=== PATIENT | female | born 1965 | race American Indian/Alaskan Native ===

== ENCOUNTER 2018-01-16 09:58 | Emergency (ER) | payer MEDICAID ==
[2018-01-16] MEDS ORDERED: Lactated Ringers 1,000 ML IV ONE (11:01)
[2018-01-16] MEDS ORDERED: diphenhydrAMINE 50 MG/ML SDV IVPUSH ONE (11:02)
[2018-01-16] MEDS ORDERED: Ketorolac 30 MG/ML SDV IVPUSH ONE (11:02)
[2018-01-16] MEDS ORDERED: Prochlorperazine 10 MG/2 ML SDV IVPUSH ONE (11:02)
--- NOTE | 2018-01-16 11:08 | EDM.PDOC ---
ED HPI GENERAL MEDICAL PROBLEM - General Chief Complaint: Headache Stated Complaint: SEVERE HEADACHE Time Seen by Provider: 01/16/18 10:50 Source of Information: Reports: Patient, Old Records, RN History Limitations: Reports: No Limitations - History of Present Illness INITIAL COMMENTS - FREE TEXT/NARRATIVE: 52 yo female presents with an occipital TRAN since yesterday. No fever. Has vomited twice today. Has had these TRAN's in the past and they went away with "position changes". No self tx today. Has not seen her primary for this. Was recently started on Losartan for HTN, is not sure what her BP was when the med was started. No recent head trauma. Has a remote hx of a pituitary tumor(benign) . Onset: Gradual Onset Date: 01/15/18 Duration: Hour(s):, Constant Location: Reports: Head Quality: Reports: Ache Severity: Moderate Improves with: Reports: None Worsens with: Reports: None Context: Reports: Other (unknown) Associated Symptoms: Reports: Nausea/Vomiting. 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 - Past Surgical History Endocrine Surgical History: Reports: Pituitary Tumor Resection Social & Family History - Tobacco Use Smoking Status *Q: Former Smoker Used Tobacco, but Quit: Yes Month/Year Tobacco Last Used: 08/2017 - Caffeine Use Caffeine Use: Reports: Coffee, Soda - Recreational Drug Use Recreational Drug Use: No ED ROS GENERAL - Review of Systems Review Of Systems: See Below Constitutional: Reports: No Symptoms HEENT: Reports: No Symptoms Respiratory: Reports: No Symptoms Cardiovascular: Reports: No Symptoms Endocrine: Reports: No Symptoms GI/Abdominal: Reports: Nausea, Vomiting : Reports: No Symptoms Musculoskeletal: Reports: Neck Pain (at occiput) Skin: Reports: No Symptoms Neurological: Reports: Headache Psychiatric: Reports: No Symptoms - Physical Exam Exam: See Below Exam Limited By: No Limitations General Appearance: Alert, WD/WN, No Apparent Distress, Obese Eye Exam: Bilateral Eye: Normal Inspection Ears: Normal External Exam, Normal Canal, Hearing Grossly Normal, Normal TMs Nose: Normal Inspection, Normal Mucosa, No Blood Throat/Mouth: Normal Inspection, Normal Lips, Normal Oropharynx, Normal Voice, No Airway Compromise Head Exam: Atraumatic, Normocephalic Neck: Normal Inspection, Supple, Non-Tender Respiratory/Chest: No Respiratory Distress, Lungs Clear, Normal Breath Sounds, No Accessory Muscle Use Cardiovascular: Regular Rate, Rhythm GI/Abdominal: Normal Bowel Sounds, Soft, Non-Tender, No Distention Neuro Exam (Abbreviated): Alert, Oriented, CN II-XII Intact, Normal Cognition, No Motor/Sensory Deficits Back Exam: Normal Inspection. No: CVA Tenderness (R), CVA Tenderness (L) Extremities: Normal Inspection, Normal Range of Motion, Non-Tender, No Pedal Edema Psychiatric: Normal Affect, Normal Mood Skin Exam: Warm, Dry, Intact, Normal Color, No Rash Course - Vital Signs Text/Narrative:: Feeling better, not resolved after the Flexeril was added to her initial medications. Last Recorded V/S: Last Vital Signs Temp 36.7 C 01/16/18 10:30 Pulse 91 01/16/18 12:26 Resp 14 01/16/18 12:26 BP 170/85 H 01/16/18 12:26 Pulse Ox 98 01/16/18 10:30 - Orders/Labs/Meds Labs: Laboratory Tests 01/16/18 Range/Units 11:07 C-Reactive Protein 0.26 (0.0-0.3) mg/dL Meds: Medications Discontinued Medications Generic Name Dose Route Start Last Admin Trade Name Freq PRN Reason Stop Dose Admin Cyclobenzaprine HCl 10 mg 01/16/18 12:19 01/16/18 12:23 Flexeril PO 01/16/18 12:20 10 mg ONETIME ONE Administration Diphenhydramine HCl 25 mg 01/16/18 11:02 01/16/18 11:32 Benadryl IVPUSH 01/16/18 11:03 25 mg ONETIME ONE Administration Lactated Ringer's 1,000 mls @ 1,000 mls/hr 01/16/18 11:01 01/16/18 11:32 Ringers, Lactated IV 01/16/18 12:00 1,000 mls/hr BOLUS ONE Administration Ketorolac Tromethamine 30 mg 01/16/18 11:02 01/16/18 11:32 Toradol IVPUSH 01/16/18 11:03 30 mg ONETIME ONE Administration Prochlorperazine Edisylate 10 mg 01/16/18 11:02 01/16/18 11:32 Compazine IVPUSH 01/16/18 11:03 10 mg ONETIME ONE Administration Departure - Departure Time of Disposition: 13:00 Disposition: Home, Self-Care 01 Condition: Fair Clinical Impression: Occipital headache - Discharge Information Referrals: Herrera Tomas MD [Primary Care Provider] - Forms: ED Department Discharge
[2018-01-16] MEDS ORDERED: Cyclobenzaprine 10 MG Tab PO ONE (12:19)
[2018-01-16 13:22] VITALS: BP 135/70
== END 2018-01-16 13:20 | disposition home or self-care (01) ==
LOC: JP.ED 09:58
DX: R51 Headache (principal); I10 Essential (primary) hypertension; Z88.1 Allergy status to other antibiotic agents; Z87.891 Personal history of nicotine dependence
CPT/HCPCS: 36415; 86140; 96374; 96375; 99284; A9270; J0780; J1200; J1885; J7120

== ENCOUNTER 2024-02-24 03:00 | Emergency (ER) | payer MEDICAID ==
[2024-02-24 03:36] LABS: BASOPHILS ABSOLUTE AUTO 0.05 K/uL (0.00-0.10); BASOPHILS PERCENT AUTO 0.6 % (0.1-1.3); EOSINOPHILS ABSOLUTE AUTO 0.33 K/uL (0.00-0.40); EOSINOPHILS PERCENT AUTO 3.7 % (0.0-5.4); HEMATOCRIT 45.1 % (34.3-46.0); HEMOGLOBIN 15.5 g/dL (11.2-15.5); IMMATURE GRAN ABSOLUTE AUTO 0.03 K/uL (0.00-0.23); IMMATURE GRAN PERCENT AUTO 0.3 % (0.0-0.7); LYMPHOCYTES ABSOLUTE AUTO 3.86 K/uL (0.8-3.3); LYMPHOCYTES PERCENT AUTO 42.8 % (11.4-47.7); MEAN CORPUSCULAR HEMOGLOBIN 29.3 pg (31.6-35.5); MEAN CORPUSCULAR HGB CONC 34.4 g/dL (31.6-35.5); MEAN CORPUSCULAR VOLUME 85.3 fL (81.4-99.0); MONOCYTES ABSOLUTE AUTO 0.83 K/uL (0.20-0.90); MONOCYTES PERCENT AUTO 9.2 % (3.3-12.6); NEUTROPHILS ABSOLUTE AUTO 3.92 K/uL (1.0-7.6); NEUTROPHILS PERCENT AUTO 43.4 % (40.0-78.1); PLATELET COUNT,PLT 254 K/uL (130-375); RED BLOOD CELL COUNT 5.29 M/uL (3.77-5.24)
[2024-02-24 03:54] LABS: A/G RATIO 1.1 (1.2-2.2); ALANINE AMINOTRANSFERASE,ALT 44 U/L (12-78); ALKALINE PHOSPHATASE 211 U/L (46-116); ASPARTATE AMNIOTRANSFERASE,AST 8 U/L (15-37); BILIRUBIN TOTAL 0.3 mg/dL (0.2-1.0); BLOOD UREA NITROGEN,BUN 17 mg/dL (7-18); CALCIUM 9.7 mg/dL (8.5-10.1); CARBON DIOXIDE,CO2 25 mmol/L (21-32); CHLORIDE,CL 101 mmol/L (100-108); EST CRCL DRUG DOSING (CG) 56.71 mL/min; ESTIMATED GFR 65 mL/min (>60); GLUCOSE RANDOM 318 mg/dL (74-106); POTASSIUM,K 3.4 mmol/L (3.6-5.2); PROTEIN TOTAL,TP 7.8 g/dL (6.4-8.2); SODIUM,NA 136 mmol/L (140-148); TROPONIN I HIGH SENSITIVITY 5.8 pg/mL (<=60.3)
[2024-02-24 04:18] LABS: ANION GAP 13.4 mmol/L (5.0-14.0); TSH ULTRASENSITIVE < 0.007 uIU/mL (0.358-3.740)
[2024-02-24] MEDS: Metoprolol Tartrate 50 MG Tab PO ONE (04:23)
[2024-02-24 04:27] VITALS: BP 207/111; PULSE 114
== END 2024-02-24 04:40 | disposition home or self-care (01) ==
LOC: JP.ED 03:00
DX: I15.2 Hypertension secondary to endocrine disorders (principal); E05.90 Thyrotoxicosis, unspecified without thyrotoxic crisis or storm; Z87.891 Personal history of nicotine dependence; Z79.899 Other long term (current) drug therapy; Z88.1 Allergy status to other antibiotic agents
CPT/HCPCS: 36415; 80053; 84443; 84484; 85025; 93005; 99285; A9270